=== PATIENT | female | born 1990 ===

== ENCOUNTER 2024-07-06 16:19 | Outpatient (CLI) | payer BC, SELFPAY ==
--- NOTE | ~2024-07-06 | XR_ITS ---
Lumbosacral Spine: AP and lateral views Clinical History: Pain Findings: The normal lordotic curve is maintained. No fracture or sublocation. There is moderate to a dvanced degenerative tearing at L1-L2. No instability evident on flexion or extension. The sacroiliac joints are normally outlined. Impression: Moderate to advanced degenerative disc narrowing at L1-L2. Reviewed, dictated and finalized at location . FORMER Impression: Moderate to advanced degenerative disc narrowing at L1-L2.
--- NOTE | ~2024-07-06 | XR_ITS ---
XR hip RT min 2V 07/06/2024 16:36 Indication: Right hip pain Procedure: 2 views right hip Comparison: No prior studies for comparison. Findings: No fracture, subluxation or dislocation. No significant soft tissue abnormality. No foreign bodies. Impression: 1: No significant bone or joint abnormality. Reviewed, dictated and finalized at location B. [employer] Impression: 1: No significant bone or joint abnormality.
== END 2024-07-06 16:20 | disposition home or self-care (01) ==
LOC: MICIMG 16:23
PROVIDERS: PCP Pain Medicine Pain Medicine; Visit Provider Pain Medicine Pain Medicine
DX: M51.369 Other intervertebral disc degeneration, lumbar region without mention of lumbar back pain or lower extremity pain (principal); M25.551 Pain in right hip; M54.16 Radiculopathy, lumbar region
CPT/HCPCS: 72110; 73502